=== PATIENT | male | born 1990 | race Caucasian/White ===

== ENCOUNTER → 2022-12-18 10:50 | Outpatient (CLI) | payer OTHER, SELFPAY ==
--- NOTE | 2022-12-18 | DI.MRI.S_ITS ---
PROCEDURE: MR CERVICAL SPINE WO CON INDICATIONS: CERVICALGIA TECHNIQUE: Noncontrast sagittal T1 spin echo and T2 fast spin echo, sagittal STIR, foraminal oblique sagittal T2 fast spin echo, and axial gradient echo or T2 fast spin echo through the cervical spine. COMPARISON: None. FINDINGS: Image quality: Excellent. Alignment and Curvature: There is normal bony alignment. Bone Marrow: Marrow demonstrates normal overall signal. Spinal Cord: Visualized spinal cord has normal size and signal. No cerebellar tonsillar herniation. Paraspinous Soft Tissues: No paravertebral masses. Prevertebral soft tissues are normal in thickness. C2-C3: Normal appearance. C3-C4: Normal appearance. C4-C5: Normal appearance. C5-C6: Normal appearance. C6-C7: Normal appearance. C7-T1: Normal appearance. IMPRESSION: No significant degenerative changes within the cervical spine. The central canal and neural foramina are widely patent. The spinal cord is normal in size and signal intensity throughout. Dictated by: Rome Andersen M.D. on 12/18/2022 at 14:14 Approved by: Rome Andersen M.D. on 12/18/2022 at 14:16
== END ==
PROVIDERS: Referring Provider Nurse Practitioner Family; Visit Provider Nurse Practitioner Family
DX: M54.2 Cervicalgia (principal)
CPT/HCPCS: 72141